=== PATIENT | female | born 2005 | race Caucasian/White ===

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

== ENCOUNTER 2025-02-04 04:30 | Emergency (ER) | payer BC, OTHER ==
[~2025-02-04] VITALS: Ht 170.2 cm; Wt 80.8 kg
[2025-02-04] MEDS ORDERED: APRITAB (04:55)
[2025-02-04] MEDS ORDERED: VYVA50CA4 (04:55)
[2025-02-04] MEDS ORDERED: FAMO40TA3 (04:55)
[2025-02-04] MEDS: KETOROLAC 30 MG/ML 1 ML VIAL IV ONE (06:20)
[2025-02-04] MEDS: ONDANSETRON 4MG 2ML VIAL IV ONE (06:49)
[2025-02-04 06:59] LABS: BASO # 0.1 10^3/uL (0.0-0.2); BASO % 0.4 % (0.0-1.0); EOS # 0.1 10^3/uL (0.0-0.5); EOS % 0.8 % (0.0-3.0); LYMPH # 1.7 10^3/uL (1.5-5.0); LYMPH % 12.9 % (24.0-44.0); MONO # 0.8 10^3/uL (0.0-0.8); MONO % 5.7 % (2.0-8.0); NEUTROPHILS # 10.6 10^3/uL (1.5-8.5); NEUTROPHILS % 79.8 % (36.0-66.0); PLATELET COUNT, AUTOMATED 413 10^3/uL (150-450)
[2025-02-04 07:18] VITALS: TEMP 96.4
[2025-02-04 07:25] LABS: ALT/SGPT 28 U/L (7.0-40); AST/SGOT 25 U/L (<34); CALCIUM LEVEL 9.5 MG/DL (8.5-10.1); CARBON DIOXIDE LEVEL 25 MMOL/L (20-31); CHLORIDE LEVEL 103 MMOL/L (98-107); CREATININE FOR GFR 0.66 MG/DL (0.55-1.30); GLOMERULAR FILTRATION RATE > 90.0 (>60); HCG, SERUM QUANTITATIVE < 2.6 MIU/ML (<4.2); POTASSIUM SERUM 4.0 MMOL/L (3.5-5.1); SODIUM LEVEL 141 MMOL/L (136-145)
[2025-02-04] MEDS: NS (Normal Saline) 0.9% 1,000 ML IV ONE (07:57)
[2025-02-04] MEDS ORDERED: ISOVUE-370 76% 100 ML VIAL As Ordered ONE (08:00)
[2025-02-04] MEDS: ACETAMINOPHEN *IV* 1,000 MG in IV 1 EA IV ONE (09:16)
[2025-02-04 09:19] LABS: KETONE, URINE AUTO RFX TRACE mg/dL (NEGATIVE); LEUKOCYTE ESTERASE UR AUTO RFX NEGATIVE (NEGATIVE); MUCUS, URINE RFX SMALL (NEGATIVE); NITRITE, URINE AUTO RFX NEGATIVE (NEGATIVE); RBC, URINE AUTO RFX 1 /HPF (0-3); SQUAM EPITHELIAL CELL UR AURFX 1 /HPF (0-6); WBC, URINE AUTO RFX 2 /HPF (0-3)
[2025-02-04 09:33] VITALS: BP 118/74; O2SAT 100
[2025-02-04] MEDS ORDERED: ONDA-282 PO (09:44)
[2025-02-04] MEDS ORDERED: KETO-204 PO (09:44)
[2025-02-04] MEDS ORDERED: TAMS-18 PO (09:44)
== END 2025-02-04 10:01 | disposition home or self-care (01) ==
LOC: M ED 04:30
DX: N13.2 Hydronephrosis with renal and ureteral calculous obstruction (principal); Z79.899 Other long term (current) drug therapy
CPT/HCPCS: 74177; 80053; 81001; 83605; 83690; 84702; 85025; 96361; 96365; 96375; 99284; J0131; J1885; J2405; Q9967